=== PATIENT | female | born 2000 | race African-American/Black ===

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

== ENCOUNTER 2023-09-26 14:12 | Emergency (ER) | payer SELFPAY ==
[~2023-09-26] VITALS: Ht 157.5 cm; Wt 60.3 kg
[2023-09-26 17:54] VITALS: BP 127/84; PULSE 74; RESP 18; TEMP 98.2; O2SAT 100
== END 2023-09-26 17:56 | disposition home or self-care (01) ==
LOC: FSED 14:16
DX: O20.0 Threatened abortion (principal)
CPT/HCPCS: 76805; 99283